=== PATIENT | female | born 1975 | race Caucasian/White ===

== ENCOUNTER 2018-01-03 09:28 | Outpatient (CLI) | payer BC ==
[2018-01-03 10:50] LABS: BHCG - Serum Negative (NEGATIVE); Pregs Control Background? CLEAR/WHITE (CLR/WHITE); Pregs Control Bar Appear? YES (CONTROL BAR)
[2018-01-03 11:04] LABS: ALT (SGPT) 14 U/L (8-55); AST (SGOT) 15 U/L (5-34); Alkaline Phosphatase 79 U/L (40-150); Anion Gap 9 mmol/L (10-20); BUN (Urea Nitrogen) 8 mg/dL (7.0-18.7); Bilirubin, Total 0.8 mg/dL (0.2-1.2); Calc. Creatinine Clearance 0 mL/min (70-130); Calcium 8.5 mg/dL (7.8-10.44); Carbon Dioxide 25 mmol/L (22-29); Chloride 110 mmol/L (98-107); Estimated GFR-MDRD 78; Globulin 2.3 g/dL (2.4-3.5); Glucose 94 mg/dL (70-105); Potassium 4.3 mmol/L (3.5-5.1); Protein, Total 6.3 g/dL (6.0-8.3); Sodium 140 mmol/L (136-145)
[2018-01-03 11:18] LABS: #Basophils 0.1 thou/uL (0.0-0.2); #Eosinphils 0.1 thou/uL (0.0-0.7); #Monocytes 0.4 thou/uL (0.11-0.59); #Neutrophils 3.2 thou/uL (1.40-6.50); %Eosinophils 2.1 % (0.0-10.0); %Lymphocytes 35.4 % (21.0-51.0); %Monocytes 6.1 % (0.0-10.0); %Neutrophils 55.3 % (42.0-75.0); Hemoglobin 12.5 g/dL (12.0-16.0); Mean Corpuscular HGB CONC 33.7 g/dL (32.0-36.0); Mean Corpuscular Hemoglobin 27.3 pg (27.0-31.0); Mean Corpuscular Volume 81.1 fl (81.0-99.0); Mean Platelet Volume 8.5 fL (7.4-10.4); Platelet Count 203 thou/uL (130-400); RBC Distribution Width 16.6 % (11.5-14.5); Red Blood Cell (RBC) Count 4.59 mill/uL (4.20-5.40); White Blood Cell (WBC) Count 5.8 thou/uL (4.8-10.8)
== END 2018-01-03 09:29 | disposition home or self-care (01) ==
LOC: LABBT 09:28
PROVIDERS: ATTEND Surgery
DX: K43.2 Incisional hernia without obstruction or gangrene (principal)
CPT/HCPCS: 80053; 84703; 85025

== ENCOUNTER 2018-01-06 11:27 | Day surgery (SDC) | payer BC ==
[2018-01-03 10:09] VITALS: BMI 40.2
[2018-01-06] MEDS ORDERED: Bupivacaine HCl 0.5%/Epinephrine 1:200,000/PF 30 ml Vial ONE (13:37)
[2018-01-06] MEDS ORDERED: Lidocaine 2% 10 ML INJ ONE (13:38)
[2018-01-06] MEDS ORDERED: Fentanyl 250 MCG/5 ML VIAL ONE (13:42)
[2018-01-06] MEDS ORDERED: CEFAZOLIN/Water 2 GM/20 ML SYRINGE ONE (13:47)
--- NOTE | 2018-01-06 15:05 | OP ---
PREOPERATIVE DIAGNOSIS: Recurrent incisional ventral hernia. SURGEON: Gerhard Espinoza M.D. PROCEDURE PERFORMED: Drainage of large seroma with closure of the fascial edges. INDICATIONS: This is a 42-year-old female, who had had a previous laparoscopic ventral hernia repair . She developed a recurrent bulge that seem to change with cough or Valsalva. FINDINGS: A very large seroma about 8 cm. The fascial edges were not approximated so the mesh was v charline flexible but they really was not a definite hernia. PROCEDURE IN DETAIL: After informed consent was obtained, the patient was taken to the operating soy m, given general endotracheal anesthesia. She was placed in the supine position. The abdomen was pr epped and draped in the usual fashion. A midline incision was performed. The subcu divided sharply, but I thought the hernia sac was encountered and was opened and contained clear fluid. This was adri ined probably about a liter. Inspected the base and there was mesh palpable and visible. The fascia l edges were about a centimeters apart, elected to just reapproximate the fascial edges with interrup aurelio [id number] and #1 Prolene. I placed a drain and brought it out through a separate stab wou nd. Hemostasis achieved with electrocautery. Subcutaneous reapproximated with interrupted 3-0 Vicry l. Skin closed with a running subcuticular 4-0 Rapide. Steri-Strips applied. Sterile bandage appli ed. The patient tolerated the procedure well and was transferred to recovery in good condition. Spo nge and needle count verified correct x2.
[2018-01-06] MEDS ORDERED: Fentanyl 100 MCG/2 ML VIAL ONE (15:18)
[2018-01-06] MEDS ORDERED: Promethazine HCl 25 MG/ML VIAL ONE (16:05)
[2018-01-06] MEDS ORDERED: Morphine 4 MG/ML VIAL ONE (16:06)
[2018-01-06] MEDS ORDERED: HYDROcodone/Acetaminophen 10/325 mg Tablet ONE (16:52)
== END 2018-01-06 17:23 | disposition home or self-care (01) ==
LOC: SDC 11:27
PROVIDERS: ATTEND Surgery
PROC: 0J980ZX Drainage of Abdomen Subcutaneous Tissue and Fascia, Open Approach, Diagnostic (ICD-10-PCS; principal; 2018-01-06)
DX: L76.34 Postprocedural seroma of skin and subcutaneous tissue following other procedure (principal); K43.2 Incisional hernia without obstruction or gangrene; Z98.890 Other specified postprocedural states
CPT/HCPCS: 96374; 96375; J0670; J2270; J2550; J3010

== ENCOUNTER 2021-03-03 03:13 | Emergency (ER) | payer BC | END 2021-03-03 06:50 | disposition home or self-care (01) | LOC: ERS 03:13 | DX: R10.13 Epigastric pain (principal) | CPT/HCPCS: 36415; 74177; 80053; 81003; 81025; 83690; 84484; 85025; 93005; 96374; 96375; 96376; J2270; J2405; Q9967 ==

== ENCOUNTER 2022-07-19 21:46 | Emergency (ER) | payer BC ==
[2022-07-19] MEDS ORDERED: Ketorolac Tromethamine 30 MG/ML VIAL ONE (22:46)
[2022-07-19] MEDS ORDERED: Ondansetron ODT 4 MG TAB ONE (22:55)
== END 2022-07-19 23:15 | disposition home or self-care (01) ==
LOC: ERS 21:46
DX: H72.92 Unspecified perforation of tympanic membrane, left ear (principal)
CPT/HCPCS: 96372; 99282; J1885; Q0162